=== PATIENT | male | born 1990 | race Caucasian/White ===

== ENCOUNTER 2017-04-27 17:14 | Emergency (ER) | payer OTHER | END 2017-04-27 21:32 | disposition other institution (70) | LOC: ER 17:14 | DX: L03.116 Cellulitis of left lower limb (principal); F11.10 Opioid abuse, uncomplicated; Z86.19 Personal history of other infectious and parasitic diseases; G40.909 Epilepsy, unspecified, not intractable, without status epilepticus; F17.210 Nicotine dependence, cigarettes, uncomplicated; Z88.8 Allergy status to other drugs, medicaments and biological substances | CPT/HCPCS: 99284-25 ==

== ENCOUNTER 2017-04-27 17:14 | Inpatient (IN) | payer OTHER ==
[~2017-04-27] VITALS: Ht 188 cm; Wt 81.0 kg
[2017-04-27 19:14] LABS: BASO % 0.2 % (0.2-1.2); EOS % 0.1 % (0.8-7.0); GRAN # 15.3 10_X3_uL (1.8-5.4); HEMATOCRIT 39.1 % (40-51); HEMOGLOBIN 13.8 g/dL (13.7-17.5); LYMPH # 1.1 10_X3_uL (1.3-3.6); LYMPH % 5.9 % (21.8-53.1); MEAN CORPUSCULAR HEMOGLOBIN 29.4 pg (27.0-33.0); MEAN CORPUSCULAR HGB CONC 35.3 g/dL (32.0-36.0); MEAN CORPUSCULAR VOLUME 83.4 fL (79-92); MEAN PLATELET VOLUME 11.5 fl (7.5-11.5); MONO # 2.2 10_X3_uL (0.3-0.8); MONO % 11.8 % (5.3-12.2); PLATELET COUNT 175 x10_3/uL (163-337); RED BLOOD COUNT 4.69 x10_6/uL (4.6-6.1); RED CELL DISTRIBUTION WIDTH 14.6 % (11.6-14.4); WHITE BLOOD COUNT 18.6 x10_3/uL (4.2-9.1)
[2017-04-27 19:28] LABS: CALCIUM 9.7 mg/dL (8.7-10.7); CREATININE 1.7 mg/dL (0.6-1.3); POTASSIUM 4.3 mmol/L (3.5-5.1)
[2017-04-28 02:28] LABS: URINE BILIRUBIN NEGATIVE (NEGATIVE); URINE BLOOD TRACE (NEGATIVE); URINE GLUCOSE (UA) NORMAL (NORMAL); URINE KETONE NEGATIVE (NEGATIVE); URINE LEUKOCYTE ESTERASE NEGATIVE (NEGATIVE); URINE NITRATE NEGATIVE (NEGATIVE); URINE PROTEIN 1+ (NEGATIVE); UROBILINOGEN NORMAL mg/dL (<1.0)
[2017-04-28 04:03] LABS: URINE RBC 0-5 /[HPF] (0-2)
[2017-04-28 07:43] LABS: BASO % 0.2 % (0.2-1.2); EOS # 0.2 10_X3_uL (0.0-0.5); EOS % 0.8 % (0.8-7.0); GRAN # 16.2 10_X3_uL (1.8-5.4); GRAN % 80.9 % (34.0-67.9); HEMATOCRIT 41.1 % (40-51); HEMOGLOBIN 15.4 g/dL (13.7-17.5); LYMPH # 1.6 10_X3_uL (1.3-3.6); MEAN CORPUSCULAR HEMOGLOBIN 31.6 pg (27.0-33.0); MEAN CORPUSCULAR HGB CONC 37.5 g/dL (32.0-36.0); MEAN CORPUSCULAR VOLUME 84.2 fL (79-92); MEAN PLATELET VOLUME 12.1 fl (7.5-11.5); MONO % 10.1 % (5.3-12.2); PLATELET COUNT 183 x10_3/uL (163-337); RED BLOOD COUNT 4.88 x10_6/uL (4.6-6.1); RED CELL DISTRIBUTION WIDTH 14.7 % (11.6-14.4)
[2017-04-28 07:53] LABS: BLOOD UREA NITROGEN 21 mg/dL (7-18); CALCIUM 9.5 mg/dL (8.7-10.7); CARBON DIOXIDE 15 mmol/L (21-32); CREATININE 1.1 mg/dL (0.6-1.3); GLUCOSE,RANDOM 108 mg/dL (70-99); POTASSIUM 4.9 mmol/L (3.5-5.1); SODIUM 136 mmol/L (136-145)
[2017-04-29 07:01] LABS: HEMATOCRIT 36.6 % (40-51); HEMOGLOBIN 12.2 g/dL (13.7-17.5); MEAN CORPUSCULAR HEMOGLOBIN 28.5 pg (27.0-33.0); MEAN CORPUSCULAR HGB CONC 33.3 g/dL (32.0-36.0); MEAN CORPUSCULAR VOLUME 85.5 fL (79-92); MEAN PLATELET VOLUME 11.1 fl (7.5-11.5); RED BLOOD COUNT 4.28 x10_6/uL (4.6-6.1); RED CELL DISTRIBUTION WIDTH 14.3 % (11.6-14.4); WHITE BLOOD COUNT 9.6 x10_3/uL (4.2-9.1)
[2017-04-29 07:52] LABS: ALBUMIN 3.8 gm/dL (3.4-5.0); ALKALINE PHOSPHATASE 116 U/L (50-136); ALT/SGPT 49 U/L (7.53-40.17); AST/SGOT 47 U/L (6.66-35.34); BILIRUBIN,TOTAL 0.45 mg/dL (0.0-1.0); BLOOD UREA NITROGEN 16 mg/dL (7-18); CALCIUM 8.9 mg/dL (8.7-10.7); CARBON DIOXIDE 26 mmol/L (21-32); CREATININE 0.9 mg/dL (0.6-1.3); GLUCOSE,RANDOM 121 mg/dL (70-99); SODIUM 137 mmol/L (136-145); TOTAL PROTEIN 7.4 gm/dL (6.4-8.2)
[2017-04-30 06:45] LABS: HEMATOCRIT 35.8 % (40-51); MEAN CORPUSCULAR HEMOGLOBIN 28.9 pg (27.0-33.0); MEAN CORPUSCULAR HGB CONC 33.5 g/dL (32.0-36.0); MEAN CORPUSCULAR VOLUME 86.3 fL (79-92); MEAN PLATELET VOLUME 11.1 fl (7.5-11.5); RED BLOOD COUNT 4.15 x10_6/uL (4.6-6.1); RED CELL DISTRIBUTION WIDTH 14.4 % (11.6-14.4); WHITE BLOOD COUNT 7.3 x10_3/uL (4.2-9.1)
[2017-04-30 06:53] LABS: BLOOD UREA NITROGEN 11 mg/dL (7-18); CALCIUM 8.8 mg/dL (8.7-10.7); CARBON DIOXIDE 26 mmol/L (21-32); CREATININE 0.8 mg/dL (0.6-1.3); GLUCOSE,RANDOM 93 mg/dL (70-99); POTASSIUM 4.2 mmol/L (3.5-5.1); SODIUM 141 mmol/L (136-145)
[2017-05-01 07:05] LABS: BLOOD UREA NITROGEN 12 mg/dL (7-18); CARBON DIOXIDE 26 mmol/L (21-32); CREATININE 0.7 mg/dL (0.6-1.3); GLUCOSE,RANDOM 84 mg/dL (70-99); HEMATOCRIT 37.7 % (40-51); MEAN CORPUSCULAR HEMOGLOBIN 29.1 pg (27.0-33.0); MEAN CORPUSCULAR HGB CONC 34.5 g/dL (32.0-36.0); MEAN CORPUSCULAR VOLUME 84.5 fL (79-92); MEAN PLATELET VOLUME 11.6 fl (7.5-11.5); POTASSIUM 4.2 mmol/L (3.5-5.1); RED BLOOD COUNT 4.46 x10_6/uL (4.6-6.1); RED CELL DISTRIBUTION WIDTH 14.2 % (11.6-14.4); SODIUM 138 mmol/L (136-145); WHITE BLOOD COUNT 7.5 x10_3/uL (4.2-9.1)
== END 2017-05-01 14:28 | disposition home or self-care (01) | DRG 603 ==
LOC: ER 17:14 → MS 21:32
PROVIDERS: Emergency Medicine; ADMIT Family Medicine
PROC: 0H9NXZZ Drainage of Left Foot Skin, External Approach (ICD-10-PCS; principal; 2017-04-28)
DX: L03.116 Cellulitis of left lower limb (principal); L02.612 Cutaneous abscess of left foot; F19.10 Other psychoactive substance abuse, uncomplicated; G40.909 Epilepsy, unspecified, not intractable, without status epilepticus; R12 Heartburn; B96.89 Other specified bacterial agents as the cause of diseases classified elsewhere; Z86.19 Personal history of other infectious and parasitic diseases; Z88.6 Allergy status to analgesic agent; Z88.8 Allergy status to other drugs, medicaments and biological substances; F17.210 Nicotine dependence, cigarettes, uncomplicated; Z83.3 Family history of diabetes mellitus; Z80.9 Family history of malignant neoplasm, unspecified; Z82.49 Family history of ischemic heart disease and other diseases of the circulatory system; Z83.6 Family history of other diseases of the respiratory system
CPT/HCPCS: 36415; 80048; 80053; 80202; 81001; 83605; 85025; 87040; 87070; 87075; 87186; 96365; 96375; 99070; 99284-25; J1170; J3370; J7050